=== PATIENT | female | born 1950 | race Two or more races ===

== ENCOUNTER 2018-10-14 07:20 | Outpatient (CLI) | payer OTHER | END 2018-10-14 07:33 | disposition home or self-care (01) | LOC: LAB 07:20 | DX: D68.8 Other specified coagulation defects (principal); E78.2 Mixed hyperlipidemia; N39.0 Urinary tract infection, site not specified; I10 Essential (primary) hypertension; R07.89 Other chest pain ==

== ENCOUNTER → 2019-03-02 11:28 | Outpatient (CLI) | payer OTHER | END | disposition home or self-care (01) | LOC: LAB 11:28 | DX: D68.8 Other specified coagulation defects (principal); E78.2 Mixed hyperlipidemia; N39.0 Urinary tract infection, site not specified; R07.89 Other chest pain ==